=== PATIENT | female | born 1945 | race Caucasian/White ===

== ENCOUNTER 2018-06-04 03:29 | Inpatient (IN) ==
[2018-06-04] MEDS ORDERED: Ipratropium/Albuterol Neb 3 ML IH ONE ×2 (03:40→03:49)
[2018-06-04] MEDS ORDERED: methylPREDNISolone 125 MG/2 ML VIAL IVP ONE (03:40)
--- NOTE | 2018-06-04 03:52 | Emergency Department Note ---
Disposition Clinical Impression: Acute exacerbation of chronic obstructive airways disease, NSTEMI (non-ST elevated myocardial infarction) Community acquired pneumonia Qualifiers: Laterality: left Lung location: lower lobe of lung Qualified Code(s): J18.1 - Lobar pneumonia, unspecified organism Disposition: Admitted As Inpatient Condition: Fair Time of Disposition: 06:16 SOB HPI - General Chief Complaint: ED Shortness of Breath/Dyspnea Stated Complaint: SOB Time Seen by Provider: 06/04/18 03:40 Source: patient, EMS Mode of arrival: EMS Limitations: no limitations Nursing Notes Reviewed: Yes Vital Signs Reviewed: Yes - History of Present Illness Patient is a 72-year-old female presenting with difficulty breathing and wheezing. Past medical history significant for COPD, hypertension, hyperlipidemia. Patient states that since , 3 days ago, she is having increasing difficulty breathing with wheezing and slight cough, no sputum production. She states she has also had generalized upper respiratory congestion with rhinorrhea. She states that she has been using her inhalers as directed, without relief. She notes that this evening, when she was walking from her bedroom to her bathroom she became very short of breath with increased work of breathing and felt as though "she could not catch her breath ". She also states that she ran out of her inhalers this evening, which is why she then called EMS. She denies fever, chills. She denies chest pain or pressure. She denies associated nausea, vomiting, diaphoresis or abdominal pain. Patient denies any increased swelling in the lower extremities. Per EMS, on arrival patient's oxygen saturation was 94%, she did request an albuterol treatment and pulse ox was read at 98%. Upon arrival, patient states that she continues to have symptoms of difficulty breathing and wheezing although this feels slightly improved following the treatment in the squad. Patient states she has had COPD exacerbation in the past, this feels very similar. - Related Data Home Medications Medication Instructions Recorded Confirmed Albuterol Sulfate [Ventolin Hfa] 18 gm IH QID PRN 06/04/18 06/04/18 Aspirin [Lo-Dose Aspirin EC] 81 mg PO DAILY 06/04/18 06/04/18 Hydrochlorothiazide [Microzide] 12.5 mg PO DAILY PRN 06/04/18 06/04/18 Levothyroxine [Synthroid] 100 mcg PO 0630 06/04/18 06/04/18 Metoprolol [Lopressor] 100 mg PO DAILY 06/04/18 06/04/18 Montelukast [Singulair] 10 mg PO DAILY 06/04/18 06/04/18 Omeprazole [PriLOSEC] 40 mg PO DAILY 06/04/18 06/04/18 Allergies Allergy/AdvReac Type Severity Reaction Status Date / Time LC Allergy Hives Uncoded 04/11/16 10:18 All systems ED: reviewed and negative except as stated. Review of Systems: As Per HPI Constitutional: Denies: fever, chills, weakness Eyes: Denies: eye pain ENT ED: Reports: congestion Cardiovascular: Reports: dyspnea on exertion. Denies: chest pain, palpitations , syncope Respiratory: Reports: cough, dyspnea, wheezes. Denies: hemoptysis Gastrointestinal: Denies: abdominal pain, nausea, vomiting, diarrhea Genitourinary: Denies: urgency, dysuria Musculoskeletal: Denies: back pain Integumentary: Denies: rash Neurological: Denies: headache, weakness, numbness, paresthesias, confusion Endocrine: Denies: fatigue Past Medical History - Past Medical History Attestation: Yes The following information was validated with the patient. Source: patient Medical history: Reports: COPD, hypertension, thyroid disease - Social History Smoking Status: Never smoker Smokeless Tobacco Status: No Alcohol use: Reports: none Drug use: Reports: none Physical Exam - General Limitations: no limitations General appearance: alert, in no apparent distress - Head Head exam: atraumatic, normocephalic - Eye Eye exam: Present: normal appearance, EOMI - ENT ENT exam: normal exam, mucous membranes moist - Neck Neck exam: Present: normal inspection - Chest Chest inspection: Present: normal inspection, symmetric chest wall rise - Respiratory Respiratory exam: Present: wheezes (Scattered throughout). Absent: accessory muscle use - Cardiovascular Cardiovascular exam: Present: regular rate, normal rhythm - Abdominal Exam Abdominal exam: Present: soft, Non-Tender. Absent: tenderness, distention, guarding, rebound, rigidity - Extremities Exam Extremities exam: Present: normal inspection, normal capillary refill. Absent: tenderness, pedal edema, calf tenderness - Expanded Lower Extremity Exam Neurovascular/Tendon exam: Present: normal capillary refill. Absent: pulse deficit, motor deficit, sensory deficit - Back Exam Back exam: Present: normal inspection - Neurological Exam Neurological exam: Present: alert, oriented X3 - Psychiatric Psychiatric exam: Present: normal affect, normal mood - Skin Skin exam: Present: warm, dry, intact Course Course Narrative: Opiate CBC, BMP, BNP, troponin, chest x-ray and EKG peak. We will give patient DuoNeb and steroids. Vital Signs Temperature 97.9 F 06/04/18 03:32 Pulse Rate 96 06/04/18 03:32 Respiratory Rate 18 06/04/18 03:32 Blood Pressure 166/104 06/04/18 03:32 O2 Sat by Pulse Oximetry 98 06/04/18 03:32 Temperature 97.9 F 06/04/18 03:32 Pulse Rate 79 06/04/18 05:23 Respiratory Rate 16 06/04/18 05:41 Blood Pressure 141/80 06/04/18 05:23 O2 Sat by Pulse Oximetry 94 06/04/18 05:41 Oxygen Delivery Oxygen Delivery Nasal Cannula Shortness of Breath/Dyspnea - [facility] Narrative Medical decision making narrative: Patient is a 72-year-old female presenting with difficulty breathing which is recurrent and progressive over the past few days. In route patient was given Albuterol Neb 1, in the ER patient was given DuoNeb 2 as well as Solu-Medrol. Upon reevaluation, patient states that symptoms are slightly better, however continues to wheeze on exam, with slight overall improvement. CXR revealed left basilar infiltrate suggestive of pnuemonia, gave rocephin and azithromycin in the ER. Laboratory revealed elevated troponin at 0.47, potassium low at 3.3, will replace potassium 40 mEq as well as started low dose heparin per [facility] protocol. CBC is unremarkable. BNP slightly elevated at 153, no prior history. While in the ER, patient has remained afebrile with relatively normal vital signs, oxygen saturation has remained in the high 90s. Upon re-evaluation , patient continues to deny chest pain or discomfort. She is agreeable at this point in time to start heparin and is in understanding of laboratory findings. Have discussed recommendation for admission to patient and she agrees with disposition and agrees to admission for further evaluation. Spoke with hospitalist, at 615 and accepts patient at this time. - Differential Diagnosis Likely: acute exacerbation of chronic obstructive airways disease, congestive heart failure, pneumonia - Medical Records Medical records reviewed: Yes I reviewed the patient's medical records. - Lab Data Lab results reviewed: Yes I reviewed the patient's lab results. Result diagrams: 06/04/18 04:50 06/04/18 04:50 Lab Results 06/04/18 06/04/18 06/04/18 Range/Units 04:50 04:50 04:50 WBC 10.0 (4.3-11.1) K/mcL RBC 4.76 (3.82-4.97) M/mcL Hgb 14.5 (11.5-15.4) g/dL Hct 42.8 (35.3-44.9) % MCV 89.9 (83.0-100.0) fL MCH 30.5 (28.0-33.3) pg MCHC 33.9 (31.6-35.5) g/dL RDW 12.2 (11.5-14.5) % Plt Count 203 (140-400) K/mcL MPV 9.6 (9.4-12.4) fL Immature Gran % 0.5 (0-4) % Seg Neutrophils % 66.5 % Lymphocytes % 22.9 % Monocytes % 8.2 % Eosinophils % 1.2 % Basophils % 0.7 % Neutrophils # 6.7 (1.6-8.9) K/mcL Lymphocytes # 2.3 (0.6-4.6) K/mcL Monocytes # 0.8 (0.0-1.3) K/mcL Eosinophils # 0.1 (0.0-0.6) K/mcL Basophils # 0.1 (0.0-0.2) K/mcL PT (9.4-12.1) Seconds INR Heparin Anti-Xa, Unfract (0.30-0.70) IU/mL Sodium 138 (136-145) mEq/L Potassium 3.3 L (3.5-5.1) mEq/L Chloride 106 (98-107) mEq/L Carbon Dioxide 22 L (23-29) mEq/L BUN 13 (8-23) mg/dL Creatinine 0.69 (0.60-1.20) mg/dL Est GFR ( Amer) > 60 (> 60) Est GFR (Non-Af Amer) > 60 (> 60) BUN/Creatinine Ratio 19 (6-26) Glucose 137 H (70-105) mg/dL Calculated Osmolality 288 (280-300) Calcium 9.5 (8.6-10.3) mg/dL Magnesium 1.8 (1.6-2.6) mg/dL Troponin I 0.47 H* (< 0.04) ng/mL B-Natriuretic Peptide 168 H (Less than 100) pg/mL 06/04/18 Range/Units 04:50 WBC (4.3-11.1) K/mcL RBC (3.82-4.97) M/mcL Hgb (11.5-15.4) g/dL Hct (35.3-44.9) % MCV (83.0-100.0) fL MCH (28.0-33.3) pg MCHC (31.6-35.5) g/dL RDW (11.5-14.5) % Plt Count (140-400) K/mcL MPV (9.4-12.4) fL Immature Gran % (0-4) % Seg Neutrophils % % Lymphocytes % % Monocytes % % Eosinophils % % Basophils % % Neutrophils # (1.6-8.9) K/mcL Lymphocytes # (0.6-4.6) K/mcL Monocytes # (0.0-1.3) K/mcL Eosinophils # (0.0-0.6) K/mcL Basophils # (0.0-0.2) K/mcL PT 12.3 H (9.4-12.1) Seconds INR 1.1 Heparin Anti-Xa, Unfract 0.02 L (0.30-0.70) IU/mL Sodium (136-145) mEq/L Potassium (3.5-5.1) mEq/L Chloride (98-107) mEq/L Carbon Dioxide (23-29) mEq/L BUN (8-23) mg/dL Creatinine (0.60-1.20) mg/dL Est GFR ( Amer) (> 60) Est GFR (Non-Af Amer) (> 60) BUN/Creatinine Ratio (6-26) Glucose (70-105) mg/dL Calculated Osmolality (280-300) Calcium (8.6-10.3) mg/dL Magnesium (1.6-2.6) mg/dL Troponin I (< 0.04) ng/mL B-Natriuretic Peptide (Less than 100) pg/mL - Radiology Data Radiology results reviewed: Yes I reviewed the patient's radiology results. Chest X-Ray 06/04/18 03:40 IMPRESSION: Left basilar atelectasis versus pneumonia. D/ / Austin Macias MD / Austin Macias MD Interpreting Provider: Austin Macias MD - EKG Data EKG attestation: Yes I reviewed and interpreted this EKG. EKG results narrative: EKG performed at 341 with ventricular rate of 98 bpm, normal rhythm, normal axis , AL interval 176, QRS 89, QT interval 378, QTC of 483, no evidence of hypertrophy, borderline diffuse ST depression in leads 2, 3, aVF, V3, V4, V5, no ST segment elevation, T wave inversion at AVL. When compared to previous EKG there are: changes noted (diffuse ST depression new) S.B.Willie - Fabiano Situation: Demographics, MOA Background: Presenting Complaint, Relevant PMH, Meds, & Allergies Assessment: Vital Signs, Course and respsone to treatment, Exam Concerns, Pertinant Lab Results Recommendation: Recommendation based on pending studies, treatments, or consults S.B.Willie Report Given to: Dr. Anderson Mario Repor Time: 06:11 (accepted)
[2018-06-04] MEDS ORDERED: Albuterol 2.5 MG/3 ML NEBULIZER IH ONE (04:54)
[2018-06-04] MEDS ORDERED: cefTRIAXone 1,000 MG in Water for inj. (sterile) 20 ML 10 ML IVP ONE (04:59)
[2018-06-04] MEDS ORDERED: Azithromycin 500 MG in D5% in Water 250 ML IVPB ONE (05:00)
[2018-06-04 05:05] LABS: Basophils # 0.1 K/mcL (0.0-0.2); Basophils % 0.7 %; Eosinophils # 0.1 K/mcL (0.0-0.6); Eosinophils % 1.2 %; Hematocrit 42.8 % (35.3-44.9); Hemoglobin 14.5 g/dL (11.5-15.4); Immature Granulocytes % 0.5 % (0-4); Lymphocytes # 2.3 K/mcL (0.6-4.6); Lymphocytes % 22.9 %; Mean Corpuscular HGB Conc 33.9 g/dL (31.6-35.5); Mean Corpuscular Hemoglobin 30.5 pg (28.0-33.3); Mean Corpuscular Volume 89.9 fL (83.0-100.0); Mean Platelet Volume 9.6 fL (9.4-12.4); Monocytes # 0.8 K/mcL (0.0-1.3); Monocytes % 8.2 %; Neutrophils # 6.7 K/mcL (1.6-8.9); Platelet Count 203 K/mcL (140-400); Red Blood Count 4.76 M/mcL (3.82-4.97); Red Cell Distribution Width 12.2 % (11.5-14.5); Segmented Neutrophils % 66.5 %
[2018-06-04 05:20] LABS: BUN/Creatinine Ratio 19 (6-26); Blood Urea Nitrogen 13 mg/dL (8-23); Calcium 9.5 mg/dL (8.6-10.3); Carbon Dioxide 22 mEq/L (23-29); Chloride 106 mEq/L (98-107); Glucose 137 mg/dL (70-105); Osmolality,Calculated 288 (280-300); Potassium 3.3 mEq/L (3.5-5.1); Sodium 138 mEq/L (136-145); eGFR For Non-African Americans > 60 (> 60)
[2018-06-04 05:28] LABS: Troponin I 0.47 ng/mL (< 0.04)
[2018-06-04] MEDS ORDERED: Aspirin 325 MG TABLET PO ONE (05:32)
[2018-06-04] MEDS ORDERED: *HR* Heparin 5,000 UNIT/ML VIAL IVP ONE (05:39)
[2018-06-04] MEDS ORDERED: *HR* Heparin 5,000 UNIT/ML VIAL IVP PRN ×2 (05:39)
[2018-06-04 05:53] LABS: Magnesium 1.8 mg/dL (1.6-2.6)
[2018-06-04 06:05] LABS: Heparin anti-factor XA UFH 0.02 IU/mL (0.30-0.70)
[2018-06-04 06:06] LABS: INR 1.1; Prothrombin Time 12.3 Seconds (9.4-12.1)
--- NOTE | 2018-06-04 06:21 | Emergency Department Note ---
Disposition Clinical Impression: Acute exacerbation of chronic obstructive airways disease, NSTEMI (non-ST elevated myocardial infarction) Community acquired pneumonia Qualifiers: Laterality: left Lung location: lower lobe of lung Qualified Code(s): J18.1 - Lobar pneumonia, unspecified organism Disposition: Admitted As Inpatient Condition: Fair Referrals: Noy Oconnell MD [Primary Care Provider] - General Adult HPI - General Chief complaint: ED Shortness of Breath/Dyspnea Stated complaint: SOB Time Seen by Provider: 06/04/18 03:40 Source: patient, EMS Mode of arrival: EMS Limitations: no limitations Nursing Notes Reviewed: Yes Vital Signs Reviewed: Yes - History of Present Illness Pain Scale: 0 - Related Data Home Medications Medication Instructions Recorded Confirmed Albuterol Sulfate [Ventolin Hfa] 18 gm IH QID PRN 06/04/18 06/04/18 Aspirin [Lo-Dose Aspirin EC] 81 mg PO DAILY 06/04/18 06/04/18 Hydrochlorothiazide [Microzide] 12.5 mg PO DAILY PRN 06/04/18 06/04/18 Levothyroxine [Synthroid] 100 mcg PO 0630 06/04/18 06/04/18 Metoprolol [Lopressor] 100 mg PO DAILY 06/04/18 06/04/18 Montelukast [Singulair] 10 mg PO DAILY 06/04/18 06/04/18 Omeprazole [PriLOSEC] 40 mg PO DAILY 06/04/18 06/04/18 Allergies Allergy/AdvReac Type Severity Reaction Status Date / Time TUSSINS Allergy Hives Uncoded 04/11/16 10:18 Constitutional: Denies: fever, chills, weakness Eyes: Denies: eye pain ENT ED: Reports: congestion Cardiovascular: Reports: dyspnea on exertion. Denies: chest pain, palpitations , syncope Respiratory: Reports: cough, dyspnea, wheezes. Denies: hemoptysis Gastrointestinal: Denies: abdominal pain, nausea, vomiting, diarrhea Genitourinary: Denies: urgency, dysuria Musculoskeletal: Denies: back pain Integumentary: Denies: rash Neurological: Denies: headache, weakness, numbness, paresthesias, confusion Endocrine: Denies: fatigue Past Medical History - Past Medical History Medical history: Reports: COPD, hypertension, thyroid disease - Social History Smoking Status: Never smoker Smokeless Tobacco Status: No Alcohol use: Reports: none Drug use: Reports: none Physical Exam - General Limitations: no limitations General appearance: alert, in no apparent distress Course Vital Signs Temperature 97.9 F 06/04/18 03:32 Pulse Rate 96 06/04/18 03:32 Respiratory Rate 18 06/04/18 03:32 Blood Pressure 166/104 06/04/18 03:32 O2 Sat by Pulse Oximetry 98 06/04/18 03:32 Temperature 97.9 F 06/04/18 03:32 Pulse Rate 79 06/04/18 05:23 Respiratory Rate 16 06/04/18 05:41 Blood Pressure 141/80 06/04/18 05:23 O2 Sat by Pulse Oximetry 94 06/04/18 05:41 Oxygen Delivery Oxygen Delivery Nasal Cannula Medical Decision Making - Medical Records Medical records reviewed: Yes I reviewed the patient's medical records. - Lab Data Lab results reviewed: Yes I reviewed the patient's lab results. Result diagrams: 06/04/18 04:50 06/04/18 04:50 Lab Results 06/04/18 06/04/18 06/04/18 Range/Units 04:50 04:50 04:50 WBC 10.0 (4.3-11.1) K/mcL RBC 4.76 (3.82-4.97) M/mcL Hgb 14.5 (11.5-15.4) g/dL Hct 42.8 (35.3-44.9) % MCV 89.9 (83.0-100.0) fL MCH 30.5 (28.0-33.3) pg MCHC 33.9 (31.6-35.5) g/dL RDW 12.2 (11.5-14.5) % Plt Count 203 (140-400) K/mcL MPV 9.6 (9.4-12.4) fL Immature Gran % 0.5 (0-4) % Seg Neutrophils % 66.5 % Lymphocytes % 22.9 % Monocytes % 8.2 % Eosinophils % 1.2 % Basophils % 0.7 % Neutrophils # 6.7 (1.6-8.9) K/mcL Lymphocytes # 2.3 (0.6-4.6) K/mcL Monocytes # 0.8 (0.0-1.3) K/mcL Eosinophils # 0.1 (0.0-0.6) K/mcL Basophils # 0.1 (0.0-0.2) K/mcL PT (9.4-12.1) Seconds INR Heparin Anti-Xa, Unfract (0.30-0.70) IU/mL Sodium 138 (136-145) mEq/L Potassium 3.3 L (3.5-5.1) mEq/L Chloride 106 (98-107) mEq/L Carbon Dioxide 22 L (23-29) mEq/L BUN 13 (8-23) mg/dL Creatinine 0.69 (0.60-1.20) mg/dL Est GFR ( Amer) > 60 (> 60) Est GFR (Non-Af Amer) > 60 (> 60) BUN/Creatinine Ratio 19 (6-26) Glucose 137 H (70-105) mg/dL Calculated Osmolality 288 (280-300) Calcium 9.5 (8.6-10.3) mg/dL Magnesium 1.8 (1.6-2.6) mg/dL Troponin I 0.47 H* (< 0.04) ng/mL B-Natriuretic Peptide 168 H (Less than 100) pg/mL 06/04/18 Range/Units 04:50 WBC (4.3-11.1) K/mcL RBC (3.82-4.97) M/mcL Hgb (11.5-15.4) g/dL Hct (35.3-44.9) % MCV (83.0-100.0) fL MCH (28.0-33.3) pg MCHC (31.6-35.5) g/dL RDW (11.5-14.5) % Plt Count (140-400) K/mcL MPV (9.4-12.4) fL Immature Gran % (0-4) % Seg Neutrophils % % Lymphocytes % % Monocytes % % Eosinophils % % Basophils % % Neutrophils # (1.6-8.9) K/mcL Lymphocytes # (0.6-4.6) K/mcL Monocytes # (0.0-1.3) K/mcL Eosinophils # (0.0-0.6) K/mcL Basophils # (0.0-0.2) K/mcL PT 12.3 H (9.4-12.1) Seconds INR 1.1 Heparin Anti-Xa, Unfract 0.02 L (0.30-0.70) IU/mL Sodium (136-145) mEq/L Potassium (3.5-5.1) mEq/L Chloride (98-107) mEq/L Carbon Dioxide (23-29) mEq/L BUN (8-23) mg/dL Creatinine (0.60-1.20) mg/dL Est GFR ( Amer) (> 60) Est GFR (Non-Af Amer) (> 60) BUN/Creatinine Ratio (6-26) Glucose (70-105) mg/dL Calculated Osmolality (280-300) Calcium (8.6-10.3) mg/dL Magnesium (1.6-2.6) mg/dL Troponin I (< 0.04) ng/mL B-Natriuretic Peptide (Less than 100) pg/mL - Radiology Data Radiology results reviewed: Yes I reviewed the patient's radiology results. Chest X-Ray 06/04/18 03:40 IMPRESSION: Left basilar atelectasis versus pneumonia. D/ / Austin Macias MD / Austin Macias MD Interpreting Provider: Austin Macias MD - EKG Data EKG #2 EKG attestation: Yes I reviewed and interpreted this EKG. EKG results narrative: EKG shows a normal sinus rhythm with ventricular rate of 98. No acute ST segment elevation or depression. No arrhythmia or ectopy. Critical Care Time Critical Care Time: Yes Total Critical Care Time: 45 Attestation: Critical care performed: Time is exclusive of separately billable procedures. Time includes: direct patient care, patient reassessment, coordination of patient care, interpretation of data (laboratory data, radiology data, and respiratory data), review of patient's medical records, medical consultation and documentation of patient care. Procedures included in critical care time: Procedures excluded from critical care time: Attestation Statement - Attestation Attestation: Ozzy Fowler MD, personally evaluated this patient and discussed their management with the resident physician. I reviewed the resident's note and agree with the documented findings, medical decision making, and plan of care. 72-year-old female presents to the emergency department with a complaint of some increasing shortness of breath over the past 2 or 3 days. She states that symptoms were worse last evening and she ran out of her inhaler. Some cough. No fever. She denies any chest pain. On examination patient is a well-developed well-nourished well-appearing elderly female in no acute distress. She is alert and oriented 3. There is no cyanosis or diaphoresis. Chest is nontender to palpation. Breath sounds are equal bilaterally with scattered bilateral expiratory wheezes. Heart regular rate and rhythm. Abdomen soft and nontender with normal bowel sounds. EKG shows no acute changes. Chest x-ray shows questionable pneumonia. Labs reviewed. Troponin 0.47. Patient started on heparin infusion. The hospitalist, Dr. Barron, was consulted and accepted admission of the patient.
[2018-06-04] MEDS: Heparin 25,000 UNIT/500 ML D5W 25,000 UNIT/500 ML BAG IVC SCH (06:40)
[2018-06-04] MEDS ORDERED: hydroCHLOROthiazide 25 MG TABLET PO PRN (07:22)
[2018-06-04] MEDS ORDERED: Naloxone 0.4 MG/ML INJ IVP PRN (07:32)
--- NOTE | 2018-06-04 08:04 | Internal Med History&Physical ---
Date of Encounter: 06/04/18 Time of Encounter: 07:59 Internal Medicine - H&P: HPI History of present illness: Ms. Patricio is a 72 year old female with history of asthma, on Singulair presented for shortness of breath. This has been progressing for past 3 days. She forgot to take her Singulair when she had dyspnea. She denies chest pain, N /V, palpitations, numbness/tingling. She does complain of diaphoresis and fever at home with a cough with frothy white sputum. In the ED she was found to have excessive work of breathing with wheezing. She was given Solu Medrol, antibiotics, and Duo Nebs, she has notable relief. A chest x-ray showed left lobe atelectais vs pneumonia. An EKG was unremarkable. Troponin was elevated at 0.47. She was subsequently started on a heparin drip. She is currently in no acute distress and denies chest pain at bedside. Past Med Surg Social Fam HX - Past Medical History Medical history: COPD, hypertension, thyroid disease - Social History Smoking Status: Never smoker Smokeless Tobacco Status: No Alcohol use: none Drug use: none Internal Medicine - H&P: Meds Albuterol Sulfate [Ventolin Hfa] 18 gm IH QID PRN 06/04/18 [History] Aspirin [Lo-Dose Aspirin EC] 81 mg PO DAILY 06/04/18 [History] Hydrochlorothiazide [Microzide] 12.5 mg PO DAILY PRN 06/04/18 [History] Levothyroxine [Synthroid] 100 mcg PO 0630 06/04/18 [History] Metoprolol Succinate [Toprol Xl] 100 mg PO QDPC 06/04/18 [History] Montelukast [Singulair] 10 mg PO DAILY 06/04/18 [History] Omeprazole [PriLOSEC] 40 mg PO DAILY 06/04/18 [History] 3 Allergy/AdvReac Type Severity Reaction Status Date / Time JULIANNINS Allergy Hives Uncoded 04/11/16 10:18 All Systems PM: A 10-system review of systems was performed and is negative for pertinent findings except as documented above in the HPI. - Constitutional Constitutional: no chills, no fever(s), no night sweats - EENT Eyes: no change in vision, no discharge, no pain, no photophobia Ears: no ear discharge, no ear pain, no tinnitus Nose, mouth and throat: no dysphagia, no nasal discharge, no neck pain, no sore throat - Cardiovascular Cardiovascular ROS IM: dyspnea, no chest pain, no diaphoresis, no lightheadedness, no palpitations, no syncope - Respiratory Respiratory: cough (white frothy sputum), dyspnea, wheezing, no excessive phlegm production - Gastrointestinal Gastrointestinal: no abdominal pain, no diarrhea, no hematemesis, no hematochezia, no melena, no nausea, no vomiting - Genitourinary Genitourinary: no change in urinary stream, no dysuria, no flank pain, no hematuria - Musculoskeletal Musculoskeletal ROS IM: no numbness, no tingling - Integumentary Integumentary IM: no rash, no unusual bruising - Neurological Neurological ROS: no confusion, no convulsions, no focal weakness, no numbness, no tingling, no tremor(s) - Hematologic/Lymphatic Hematologic/Lymphatic: no easy bruising - Constitutional Vitals: Temp Pulse Resp BP Pulse Ox 97.9 F 79 18 141/75 94 06/04/18 03:32 06/04/18 05:23 06/04/18 06:49 06/04/18 06:49 06/04/18 05:41 Exam: NAD - Head Head exam: Present: atraumatic, normocephalic - Eye Eye exam: Present: PERRL, conjuntiva pink, sclera anicteric Pupils: Present: PERRL - Neck Neck exam general surgery: Present: supple, trachea midline. Absent: lymphadenopathy - Respiratory Respiratory exam: Present: prolonged expiratory phase, wheezes. Absent: accessory muscle use, rales, rhonchi - Cardiovascular Cardiovascular exam: Present: RRR, +S1, +S2. Absent: diastolic murmur, gallop, rubs, systolic murmur - GI/Abdominal GI/Abdominal exam: Present: normal bowel sounds, soft, no peritoneal signs. Absent: distended, tenderness - Extremities Exam Extremities exam: Present: warm, radial pulses palpable and symmetrical. Absent : calf tenderness, cyanotic, pedal edema - Neurological Exam Neurological exam: Present: CN II-XII intact, oriented X3, no focal deficits. Absent: pronater drift, facial droop, speech deficit - Skin Skin exam: Present: dry, intact Internal Med - H&P Results - Labs CBC & Chem 7: 06/04/18 04:50 06/04/18 04:50 - Assessment and plan (1) Acute asthma exacerbation Current Visit: Yes Status: Acute Assessment and plan: Likely the trigger is pneumonia based on history and/or other trigger such as humid weather. Continue Solu Medrol, Duo neb therapy, and Rocephin/Azithro. Await sputum cultures, procalcitonin, mycoplasma, legionella, strep pneumo workup. Qualifiers: Asthma severity: unspecified severity Asthma persistence: intermittent Qualified Code(s): J45.21 - Mild intermittent asthma with (acute) exacerbation (2) Elevated troponin Current Visit: Yes Status: Acute Assessment and plan: Likely demand ischemia from asthma exacerbation and pneumonia. Will trend troponin and continue heparin until evaluation is completed. Will also obtain echocardiogram. (3) Hypertension Current Visit: Yes Status: Acute Assessment and plan: Resume home medications. Qualifiers: Hypertension type: essential hypertension Qualified Code(s): I10 - Essential (primary) hypertension (4) Community acquired pneumonia Current Visit: Yes Status: Acute Assessment and plan: Plan as above. Qualifiers: Laterality: left Lung location: lower lobe of lung Qualified Code(s): J18.1 - Lobar pneumonia, unspecified organism (5) DVT prophylaxis Current Visit: Yes Status: Acute Assessment and plan: Currently on heparin drip. - Time Spent With Patient Total time spent is greater than 50% in coordination of care (as documented) at patient's floor/unit and/or counseling patient:
[2018-06-04] MEDS: Aspirin Enteric Coated 81 MG Tablet PO SCH (09:23)
[2018-06-04] MEDS: Metoprolol XL (24 HR) Succ 50 MG TAB.ER.24H PO SCH (09:23)
--- NOTE | 2018-06-04 12:01 | Cardiology Consult Note ---
Date of Encounter: 06/04/18 Time of Encounter: 11:30 Assessment and Plan (1) Elevated troponin Current Visit: Yes Status: Acute Troponin 0.47, 0.91 in the setting of CAP. NSTEMI type I vs. type II. Patient denies chest pain/discomfort prior to admission or during exam. ECG not available for review, will order one now. CXR suggestive of PNA. Risk factors for CAD: positive family hx (brothers with CABG, HTN) Agree with IV heparin gtt, asa, and BB. Will start statin. Check TTE. Recommend treatment of PNA and optimizing respiratory status. LHC to be considered prior to discharge, patient is agreeable. Will continue to follow. (2) Community acquired pneumonia Current Visit: Yes Status: Acute Mgmt per primary service. On IV atb Qualifiers: Laterality: left Lung location: lower lobe of lung Qualified Code(s): J18.1 - Lobar pneumonia, unspecified organism Discussion w patient/family: The assessment and plan as outlined above was discussed with the patient and/or family members who expressed understanding and agreement. All questions were answered. Thank you for involving us in the care of your patient. Please call with any questions. The patient will be discussed and reviewed with Dr. Cox; changes to be made accordingly. History of Present Illness Consult date: 06/04/18 Requesting physician: Anton Broderick Consult reason: Elevated troponin Chief complaint: Shortness of breath History of present illness: Ms. Patricio is a 72 year old female with PMHx significant of asthma, HTN, thyroid disease who presented to the ED with with worsening shortness of breath and difficulty breathing since ; patient reports she forgot to take her allergy pill which she blames on symptoms. Associated symptoms included subjective fevers and chills, and productive cough with clear-white sputum. Symptoms continued to worsen this morning which prompted ED evaluation. She denies chest pain/discomfort, orthopnea, or any other CV symptoms. No prior CV testing reported. Past Med Surg Social Fam HX - Past Medical History Attestation: Yes The following information was validated with the patient. Source: patient Medical history: COPD, hypertension, thyroid disease - Social History Smoking Status: Former smoker Smokeless Tobacco Status: No Alcohol use: none Drug use: none Medications and Allergies Albuterol Sulfate [Ventolin Hfa] 18 gm IH QID PRN 06/04/18 [History] Aspirin [Lo-Dose Aspirin EC] 81 mg PO DAILY 06/04/18 [History] Hydrochlorothiazide [Microzide] 12.5 mg PO DAILY PRN 06/04/18 [History] Levothyroxine [Synthroid] 100 mcg PO 0630 06/04/18 [History] Metoprolol Succinate [Toprol Xl] 100 mg PO QDPC 06/04/18 [History] Montelukast [Singulair] 10 mg PO DAILY 06/04/18 [History] Omeprazole [PriLOSEC] 40 mg PO DAILY 06/04/18 [History] 3 Allergy/AdvReac Type Severity Reaction Status Date / Time TUSSINS Allergy Hives Uncoded 04/11/16 10:18 All Systems Review: The remainder of the systems were reviewed and are negative - Cardiovascular Cardiovascular: as per HPI Physical Examination Vital Signs, Last 4 Hours Temp Pulse Resp BP Pulse Ox 06/04/18 08:08 97.8 F 79 16 155/77 93 General: Conversant, No Apparent Distress HEENT: Atraumatic, Normocephaly, Mucus Membranes Moist Cardiac: Reg Rate and Rhythm, Normal S1 and S2 Lungs: Other (few expiratory wheezes; diminished bilateral bases) Neuro: Alert and responsive Abdomen: Soft Skin: No rashes noted on visualized skin Musculoskeletal: No Chest Wall Tenderness Extremities: No Edema, Normal Pulses Results 06/04/18 04:50 06/04/18 04:50 Lab Results 06/04/18 10:17 Troponin I 0.94 H* Active Medications Albuterol/Ipratropium (Duoneb) 3 ml IH [id number] [facility] Stop: 12/05/18 12:01 Aspirin (Aspirin Ec) 81 mg PO DAILY [facility] Stop: 12/04/18 09:01 Last Admin: 06/04/18 09:23 Dose: 81 mg Atorvastatin Calcium (Lipitor) 40 mg PO HS [facility] Stop: 12/04/18 21:01 Heparin Sodium (Porcine) (Heparin) 4,000 unit IVP Q6HR PRN PRN Reason: SEE COMMENTS Stop: 12/04/18 05:40 Heparin Sodium (Porcine) (Heparin) 2,000 unit IVP Q6H PRN PRN Reason: SEE COMMENTS Stop: 12/04/18 05:40 Hydrochlorothiazide (Hydrochlorothiazide) 12.5 mg PO DAILY PRN PRN Reason: Hypertension Heparin Sodium/Dextrose (Heparin 25,000 Unit/500 Ml D5w) 25,000 unit in 500 mls @ 19.942 mls/hr IVC .Q24H [facility]; 11.6 UNIT/KG/HR PRN Reason: Protocol Stop: 12/04/18 05:46 Last Admin: 06/04/18 06:40 Dose: 11.6 unit/kg/hr, 19.942 mls/hr Ceftriaxone Sodium 1,000 mg/ (Sterile Water) 10 mls @ 600 mls/hr IVP DAILY [facility] Stop: 12/05/18 09:01 Azithromycin 500 mg/ Dextrose 250 mls @ 252 mls/hr IVPB Q24H [facility] Stop: 12/05/18 06:01 Levothyroxine Sodium (Synthroid) 100 mcg PO 0630 [facility] Stop: 12/05/18 06:31 Methylprednisolone (Solu-Medrol) 40 mg IVP Q6HR [facility] Stop: 12/04/18 12:01 Metoprolol Succinate (Toprol Xl) 100 mg PO DAILY [facility] Stop: 12/04/18 09:01 Last Admin: 06/04/18 09:23 Dose: 100 mg Montelukast Sodium (Singulair) 10 mg PO DAILY [facility] Stop: 12/04/18 09:01 Last Admin: 06/04/18 09:25 Dose: Not Given Naloxone HCl (Narcan) 0.4 mg IVP Q2MIN PRN PRN Reason: SEE COMMENTS Stop: 12/04/18 07:33 Omeprazole (Prilosec) 40 mg PO DAILY [facility] Stop: 12/04/18 09:01 Last Admin: 06/04/18 09:24 Dose: 40 mg - Imaging and Cardiology Echo: pending Consult Discharge Plan - Plan Referrals: Noy Oconnell MD [Primary Care Provider] -
[2018-06-04] MEDS ORDERED: NON-FORMULARY MEDICATION 1 EACH EACH (Metoprolol Succinate [Toprol Xl] 100 MG) PO SCH (12:15)
[2018-06-04] MEDS: MethylPREDNISolone 40 MG/ML VIAL IVP SCH ×2 (12:43→18:39)
[2018-06-04] MEDS ORDERED: Ipratropium/Albuterol Neb 3 ML IH PRN (16:26)
[2018-06-04] MEDS ORDERED: Beclomethasone 80mcg MDI IH PRN (16:27)
[2018-06-04] MEDS ORDERED: Melatonin 3 MG TABLET PO PRN (20:15)
[2018-06-05] MEDS: MethylPREDNISolone 40 MG/ML VIAL IVP SCH ×4 (00:46→17:05)
[2018-06-05 02:42] LABS: BUN/Creatinine Ratio 23 (6-26); Blood Urea Nitrogen 18 mg/dL (8-23); Calcium 9.9 mg/dL (8.6-10.3); Carbon Dioxide 20 mEq/L (23-29); Chloride 107 mEq/L (98-107); Glucose 173 mg/dL (70-105); Osmolality,Calculated 288 (280-300); Potassium 4.1 mEq/L (3.5-5.1); Sodium 136 mEq/L (136-145); eGFR For Non-African Americans > 60 (> 60)
[2018-06-05] MEDS: Heparin 25,000 UNIT/500 ML D5W 25,000 UNIT/500 ML BAG IVC SCH (05:35)
[2018-06-05] MEDS: Azithromycin 500 MG in D5% in Water 250 ML IVPB SCH (05:35)
--- NOTE | 2018-06-05 08:56 | Cardiology Progress Note ---
Date of Encounter: 06/05/18 Time of Encounter: 07:00 Assessment and Plan (1) Elevated troponin Current Visit: Yes Status: Acute Troponin 0.47, 0.94 in the setting of CAP. NSTEMI type I vs. type II. Patient denies chest pain/discomfort prior to admission or during exam. No acute ischemic ECG changes present. CXR suggestive of PNA. Presented with significant dyspnea/difficulty breathing. Recommend CTA to further evaluate PNA and r/o PE--discussed with primary service who will order/follow. Risk factors for CAD: positive family hx (brothers with CABG, HTN) Agree with IV heparin gtt, asa, and BB. Will start statin. Prelim TTE: EF normal, normal wall motion, mild PH, normal RV structure and function. Recommend treatment of PNA and optimizing respiratory status. LHC to be considered prior to discharge, patient is agreeable. Will continue to follow. (2) Community acquired pneumonia Current Visit: Yes Status: Acute Mgmt per primary service. On IV atb Qualifiers: Laterality: left Lung location: lower lobe of lung Qualified Code(s): J18.1 - Lobar pneumonia, unspecified organism Discussion w patient/family: The assessment and plan as outlined above was discussed with the patient and/or family members who expressed understanding and agreement. All questions were answered. Thank you for involving us in the care of your patient. Please call with any questions. The patient will be discussed and reviewed with Dr. Cox; changes to be made accordingly. Subjective Principal diagnosis: Elevated troponin Interval history: Seen and examined. No complaints overnight. Reports dyspnea has improved, still with wheezing this morning. No chest pain. Objective Vital Signs, Last 4 Hours Temp Pulse Resp BP Pulse Ox 06/05/18 07:36 98.1 F 58 17 121/79 93 Results 06/04/18 04:50 06/05/18 02:12 Lab Results 06/04/18 06/05/18 10:17 02:12 Sodium 136 Potassium 4.1 Chloride 107 Carbon Dioxide 20 L BUN 18 Creatinine 0.77 Glucose 173 H Calcium 9.9 Troponin I 0.94 H* Active Medications Albuterol/Ipratropium (Duoneb) 3 ml IH [id number] [facility] Stop: 12/05/18 12:01 Albuterol/Ipratropium (Duoneb) 3 ml IH [id number] PRN PRN Reason: Shortness Of Breath/Wheezing Stop: 12/04/18 16:31 Last Admin: 06/04/18 21:55 Dose: 3 ml Aspirin (Aspirin Ec) 81 mg PO DAILY [facility] Stop: 12/04/18 09:01 Last Admin: 06/04/18 09:23 Dose: 81 mg Atorvastatin Calcium (Lipitor) 40 mg PO HS [facility] Stop: 12/04/18 21:01 Last Admin: 06/04/18 20:14 Dose: Not Given Beclomethasone Dipropionate (Qvar 80 Mcg) 2 puff IH BID PRN PRN Reason: Wheezing Escitalopram Oxalate (Lexapro) 10 mg PO DAILY PRN PRN Reason: Anxiety Stop: 12/04/18 16:28 Heparin Sodium (Porcine) (Heparin) 4,000 unit IVP Q6HR PRN PRN Reason: SEE COMMENTS Stop: 12/04/18 05:40 Heparin Sodium (Porcine) (Heparin) 2,000 unit IVP Q6H PRN PRN Reason: SEE COMMENTS Stop: 12/04/18 05:40 Last Admin: 06/04/18 20:14 Dose: 2,000 unit Hydrochlorothiazide (Hydrochlorothiazide) 12.5 mg PO DAILY PRN PRN Reason: Hypertension Heparin Sodium/Dextrose (Heparin 25,000 Unit/500 Ml D5w) 25,000 unit in 500 mls @ 19.942 mls/hr IVC .Q24H [facility]; 11.6 UNIT/KG/HR PRN Reason: Protocol Stop: 12/04/18 05:46 Last Admin: 06/05/18 05:35 Dose: 13.61 unit/kg/hr, 23.4 mls/hr Ceftriaxone Sodium 1,000 mg/ (Sterile Water) 10 mls @ 600 mls/hr IVP DAILY [facility] Stop: 12/05/18 09:01 Azithromycin 500 mg/ Dextrose 250 mls @ 252 mls/hr IVPB Q24H [facility] Stop: 12/05/18 06:01 Last Admin: 06/05/18 05:35 Dose: 252 mls/hr Levothyroxine Sodium (Synthroid) 100 mcg PO DAILY@0630 [facility] Stop: 12/04/18 12:11 Last Admin: 06/05/18 05:35 Dose: 100 mcg Melatonin (Melatonin) 3 mg PO HS PRN PRN Reason: Insomnia Stop: 12/04/18 20:16 Last Admin: 06/04/18 21:41 Dose: 3 mg Methylprednisolone (Solu-Medrol) 40 mg IVP Q6HR [facility] Stop: 12/04/18 12:01 Last Admin: 06/05/18 05:35 Dose: 40 mg Metoprolol Succinate (Toprol Xl) 100 mg PO DAILY [facility] Stop: 12/04/18 09:01 Last Admin: 06/04/18 09:23 Dose: 100 mg Montelukast Sodium (Singulair) 10 mg PO DAILY [facility] Stop: 12/04/18 09:01 Last Admin: 06/04/18 09:25 Dose: Not Given Naloxone HCl (Narcan) 0.4 mg IVP Q2MIN PRN PRN Reason: SEE COMMENTS Stop: 12/04/18 07:33 Omeprazole (Prilosec) 40 mg PO DAILY [facility] Stop: 12/04/18 09:01 Last Admin: 06/04/18 09:24 Dose: 40 mg - Imaging and Cardiology Echo: pending Other Results: 12 hour tele: avg HR=56 SB. - EKG Interpretation EKG results cardiology: personally reviewed Consult Discharge Plan - Plan Referrals: Noy Oconnell MD [Primary Care Provider] -
[2018-06-05] MEDS: cefTRIAXone 1,000 MG in Water for inj. (sterile) 20 ML 10 ML IVP SCH (09:14)
[2018-06-05] MEDS: Aspirin Enteric Coated 81 MG Tablet PO SCH (09:14)
[2018-06-05] MEDS: Metoprolol XL (24 HR) Succ 50 MG TAB.ER.24H PO SCH (09:14)
[2018-06-05] MEDS ORDERED: Isovue-370 500 ML INFUS..BTL IV ONE (09:21)
--- NOTE | 2018-06-05 09:23 | Internal Med Progress Note ---
Hospitalist Progress Note - Encounter Date of Encounter: 06/05/18 Time of Encounter: 11:00 - Subjective Interval History: Patient presented with shortness of breath found to have asthma exacerbation secondary to pneumonia in addition to elevated troponins Cardiology following with consideration for left heart catheterization - Exam Vitals: Temp Pulse Resp BP Pulse Ox 98.1 F 58 17 121/79 93 06/05/18 07:36 06/05/18 07:36 06/05/18 07:36 06/05/18 07:36 06/05/18 07:36 Exam: Gen.: Nonacute distress, alert and oriented 3 ENT: Mucosal membranes moist Respiratory: Lungs are clear to auscultation bilaterally without any wheezing rhonchi or rales Cardiovascular: Normal S1 and S2 regular rate rhythm no murmurs rubs or gallops Abdomen: Soft, nontender and nondistended with positive bowel sounds Extremities: No lower extremity edema Skin: Normal color - Assessment and Plan (1) Community acquired pneumonia Current Visit: Yes Status: Acute Assessment and Plan: Chest x-ray with findings concerning for left basilar pneumonia Continue management with IV azithromycin and IV ceftriaxone. (2) Acute asthma exacerbation Current Visit: Yes Status: Acute Assessment and Plan: Patient with reported expiratory wheezing and shortness of breath. Suspected to be triggered by suspected pneumonia above Continue Solu Medrol, Duo neb therapy (3) Elevated troponin Current Visit: Yes Status: Acute Assessment and Plan: Elevated troponins at 0.29->0.94->0.47 Continue heparin drip Cardiology consulted with recommendations for consideration of left heart catheterization (4) Hypertension Current Visit: Yes Status: Acute Assessment and Plan: Controlled; continue beta luis fernando. (5) Hypothyroid Current Visit: Yes Status: Acute Assessment and Plan: Continue home dose of levothyroxine (6) Mood disorder Current Visit: Yes Status: Acute Assessment and Plan: Continue home medications (7) DVT prophylaxis Current Visit: Yes Status: Acute Assessment and Plan: Currently on heparin drip. DVT Prophylaxis: Patient on heparin drip - Time Spent with Patient Total time spent is greater than 50% in coordination of care (as documented) at patient's floor/unit and/or counseling patient: Internal Medicine: Result - Labs CBC & Chem 7: 06/04/18 04:50 06/05/18 02:12 Labs: BMP 06/05/18 02:12 Sodium 136 Potassium 4.1 Chloride 107 Carbon Dioxide 20 L BUN 18 Creatinine 0.77 Glucose 173 H Calcium 9.9 Cardiac Enzymes 06/04/18 Range/Units 10:17 Troponin I 0.94 H* (< 0.04) ng/mL - ABG Interpretation ABG results: PT/INR, D-dimer PT 12.3 Seconds (9.4-12.1) H 06/04/18 04:50 - Impressions Impressions Echocardiogram 06/04/18 07:34 Impressions: LVEF 60-65%. Normal LV chamber size, wall thickness and function. Mild left ventricular diastolic dysfunction. Normal right ventricular structure and function. No significant valvular dysfunction. Mild pulmonary hypertension. Estimated RVSP = 38 mmHg. Left Ventricular Wall Motion: Rest Echo Findings All wall segments showed normal motion. Findings: Study Quality * Technically adequate exam. ECG Findings * Normal sinus rhythm. Left Ventricle * LVEF 60-65%. * Normal LV chamber size, wall thickness and function. * Mild left ventricular diastolic dysfunction. Right Ventricle * Normal right ventricular structure and function. Left Atrium * Mildly dilated left atrium. Right Atrium * Normal right atrial size. Aortic Valve * Trileaflet aortic valve. * No aortic regurgitation. * No aortic stenosis. Mitral Valve * Mild mitral annular calcification * Mildly thickened mitral valve leaflets. * Trace mitral regurgitation. * No mitral stenosis. Tricuspid Valve * Normal tricuspid valve structure and function. * Trace tricuspid regurgitation. * Trace tricuspid regurgitation. * Mild pulmonary hypertension. Pulmonic Valve * Normal pulmonic valve structure and function. * No pulmonic regurgitation. Aorta * Normally sized aortic root. Pericardium * The pericardium appears normal. IVC * Normal IVC dimensions and inspiratory collapse. Pulmonary Artery * Normal visualized portions of the main pulmonary artery. Consult Discharge Plan - Plan Referrals: Noy Oconnell MD [Primary Care Provider] - (1) Community acquired pneumonia Qualifiers: Laterality: left Lung location: lower lobe of lung Qualified Code(s): J18.1 - Lobar pneumonia, unspecified organism (2) Acute asthma exacerbation Qualifiers: Asthma severity: unspecified severity Asthma persistence: intermittent Qualified Code(s): J45.21 - Mild intermittent asthma with (acute) exacerbation (4) Hypertension Qualifiers: Hypertension type: essential hypertension Qualified Code(s): I10 - Essential (primary) hypertension
[2018-06-05] MEDS: Ipratropium/Albuterol Neb 3 ML IH SCH ×4 (11:20→23:56)
[2018-06-05 13:04] LABS: Phosphorous 2.7 mg/dL (2.7-4.5)
[2018-06-05 13:48] LABS: Adenovirus Not Detected (Not Detect); Bordetella Pertussis Not Detected (Not Detect); Chlamydophila pneumoniae Not Detected (Not Detect); Coronavirus 229E Not Detected (Not Detect); Coronavirus HKU1 Not Detected (Not Detect); Coronavirus NL63 Not Detected (Not Detect); Coronavirus OC43 Not Detected (Not Detect); Human Metapneumovirus Not Detected (Not Detect); Human Rhinovirus/Enterovirus DETECTED (Not Detect); Influenza A Subtype 2009 H1 Not Detected (Not Detect); Influenza A Untypeable Not Detected (Not Detect); Influenza B Not Detected (Not Detect); Mycoplasma pneumoniae Not Detected (Not Detect); Parainfluenza Virus 1 Not Detected (Not Detect); Parainfluenza Virus 2 Not Detected (Not Detect); Parainfluenza Virus 3 Not Detected (Not Detect); Parainfluenza Virus 4 Not Detected (Not Detect); Respiratory Syncytial Virus Not Detected (Not Detect)
[2018-06-06] MEDS: MethylPREDNISolone 40 MG/ML VIAL IVP SCH ×2 (00:27→05:17)
[2018-06-06] MEDS: Heparin 25,000 UNIT/500 ML D5W 25,000 UNIT/500 ML BAG IVC SCH (04:09)
[2018-06-06] MEDS: Ipratropium/Albuterol Neb 3 ML IH SCH ×4 (04:45→16:00)
[2018-06-06] MEDS: Azithromycin 500 MG in D5% in Water 250 ML IVPB SCH (05:17)
[2018-06-06] MEDS: Metoprolol XL (24 HR) Succ 50 MG TAB.ER.24H PO SCH (09:16)
[2018-06-06] MEDS: Aspirin Enteric Coated 81 MG Tablet PO SCH (09:16)
[2018-06-06] MEDS: cefTRIAXone 1,000 MG in Water for inj. (sterile) 20 ML 10 ML IVP SCH (09:17)
--- NOTE | 2018-06-06 09:40 | Cardiology Progress Note ---
Date of Encounter: 06/06/18 Time of Encounter: 08:30 Assessment and Plan (1) Elevated troponin Current Visit: Yes Status: Acute Troponin 0.47, 0.94, 0.29 in the setting of CAP. NSTEMI type I vs. type II. Patient denies chest pain/discomfort prior to admission or during exam. No acute ischemic ECG changes present. CXR suggestive of PNA. Presented with significant dyspnea/difficulty breathing. Recommend CTA to further evaluate PNA and r/o PE--discussed with primary service who will order/follow. Risk factors for CAD: positive family hx (brothers with CABG, HTN) Has been on heparin gtt for >48 hours, will discontinue. Continue asa, statin, BB. Cardiac rehab consult not warranted at this time, will re-evaluate after future ischemic evaluation. TTE: EF normal, normal wall motion, mild PH, normal RV structure and function. Discussed possible ischemic evaluation with patient prior to discharge, however she declines. Will consider in the outpatient setting. (2) Community acquired pneumonia Current Visit: Yes Status: Acute Mgmt per primary service. On IV atb Qualifiers: Laterality: left Lung location: lower lobe of lung Qualified Code(s): J18.1 - Lobar pneumonia, unspecified organism Discussion w patient/family: The assessment and plan as outlined above was discussed with the patient and/or family members who expressed understanding and agreement. All questions were answered. Thank you for involving us in the care of your patient. Please call with any questions. The patient will be discussed and reviewed with ; changes to be made accordingly. Subjective Principal diagnosis: Elevated troponin Interval history: Seen and examined. No complaints overnight. Reports dyspnea has improved, still with wheezing this morning. + sputum cultures for rhinovirus No chest pain. Objective Vital Signs, Last 4 Hours Temp Pulse Resp BP Pulse Ox 06/06/18 07:32 16 92 06/06/18 06:54 97.6 F 69 16 172/90 97 General: Conversant, No Apparent Distress HEENT: Atraumatic, Normocephaly, Mucus Membranes Moist Cardiac: Reg Rate and Rhythm, Normal S1 and S2 Lungs: Other (Wheezing throughout) Neuro: Alert and responsive Abdomen: Soft Skin: No rashes noted on visualized skin Musculoskeletal: No Chest Wall Tenderness Extremities: No Edema, Normal Pulses Results 06/04/18 04:50 06/05/18 02:12 Active Medications Albuterol/Ipratropium (Duoneb) 3 ml IH [id number] [facility] Stop: 12/05/18 12:01 Last Admin: 06/06/18 07:32 Dose: 3 ml Albuterol/Ipratropium (Duoneb) 3 ml IH [id number] PRN PRN Reason: Shortness Of Breath/Wheezing Stop: 12/04/18 16:31 Last Admin: 06/04/18 21:55 Dose: 3 ml Aspirin (Aspirin Ec) 81 mg PO DAILY [facility] Stop: 12/04/18 09:01 Last Admin: 06/06/18 09:16 Dose: 81 mg Atorvastatin Calcium (Lipitor) 40 mg PO HS [facility] Stop: 12/04/18 21:01 Last Admin: 06/05/18 21:48 Dose: 40 mg Beclomethasone Dipropionate (Qvar 80 Mcg) 2 puff IH BID PRN PRN Reason: Wheezing Escitalopram Oxalate (Lexapro) 10 mg PO DAILY PRN PRN Reason: Anxiety Stop: 12/04/18 16:28 Last Admin: 06/06/18 05:17 Dose: 10 mg Hydrochlorothiazide (Hydrochlorothiazide) 12.5 mg PO DAILY PRN PRN Reason: Hypertension Ceftriaxone Sodium 1,000 mg/ (Sterile Water) 10 mls @ 600 mls/hr IVP DAILY [facility] Stop: 12/05/18 09:01 Last Admin: 06/06/18 09:17 Dose: 600 mls/hr Azithromycin 500 mg/ Dextrose 250 mls @ 252 mls/hr IVPB Q24H [facility] Stop: 12/05/18 06:01 Last Admin: 06/06/18 05:17 Dose: 252 mls/hr Levothyroxine Sodium (Synthroid) 100 mcg PO DAILY@0630 [facility] Stop: 12/04/18 12:11 Last Admin: 06/06/18 05:16 Dose: 100 mcg Melatonin (Melatonin) 3 mg PO HS PRN PRN Reason: Insomnia Stop: 12/04/18 20:16 Last Admin: 06/04/18 21:41 Dose: 3 mg Methylprednisolone (Solu-Medrol) 40 mg IVP Q6HR [facility] Stop: 12/04/18 12:01 Last Admin: 06/06/18 05:17 Dose: 40 mg Metoprolol Succinate (Toprol Xl) 100 mg PO DAILY [facility] Stop: 12/04/18 09:01 Last Admin: 06/06/18 09:16 Dose: 100 mg Montelukast Sodium (Singulair) 10 mg PO DAILY [facility] Stop: 12/04/18 09:01 Last Admin: 06/06/18 09:16 Dose: 10 mg Naloxone HCl (Narcan) 0.4 mg IVP Q2MIN PRN PRN Reason: SEE COMMENTS Stop: 12/04/18 07:33 Omeprazole (Prilosec) 40 mg PO DAILY [facility] Stop: 12/04/18 09:01 Last Admin: 06/06/18 09:16 Dose: 40 mg - Imaging and Cardiology Echo: report reviewed Other Results: 12 hour tele: avg HR=68 SR. No events noted. - EKG Interpretation EKG results cardiology: personally reviewed Consult Discharge Plan - Plan Referrals: Noy Oconnell MD [Primary Care Provider] -
[2018-06-06] MEDS ORDERED: predniSONE 20 MG TABLET PO ONE (12:20)
--- NOTE | 2018-06-06 12:37 | Discharge Summary ---
- NOTES TO OUTPATIENT PROVIDER Notes to Outpatient Provider: ACUTE Asthma, Pneumonia, improving; also had elevated Troponin, declined ischemic evaluation while inpatient; f/up with Cardiology;. Prednisone allergy was listed with vomiting, diarrhea; monitor closely; Flovent changed to scheduled BID; Date of Encounter: 06/06/18 Time of Encounter: 12:35 - Discharge Diagnosis (1) Community acquired pneumonia Priority: Primary Status: Acute Qualifiers: Laterality: unspecified laterality Qualified Code(s): J18.9 - Pneumonia, unspecified organism (2) Elevated troponin Priority: Primary Status: Acute (3) Acute asthma exacerbation Priority: Primary Status: Acute Qualifiers: Asthma severity: moderate Asthma persistence: persistent Qualified Code(s ): J45.41 - Moderate persistent asthma with (acute) exacerbation (4) Hypertension Priority: Secondary Status: Chronic Qualifiers: Hypertension type: essential hypertension Qualified Code(s): I10 - Essential (primary) hypertension (5) Hypothyroid Priority: Secondary Status: Chronic Qualifiers: Hypothyroidism type: unspecified Qualified Code(s): E03.9 - Hypothyroidism , unspecified (6) Mood disorder Priority: Secondary Status: Chronic Hospital course: Ms. Patricio is a 72 year old female with the above medical problems who was admitted with worsening shortness of breath and cough. Imaging studies showed bilateral pneumonia and she was started on IV antibiotics and supplemental oxygen. She was also treated for mild asthma exacerbation. Respiratory infection panel was positive for enteral/rhinovirus. Patient was also noted to have mild troponin leak, which could be demand ischemia versus non-STEMI. She was started on ACS protocol with IV heparin drip , aspirin, statin and continued on beta luis fernando. Cardiology was consulted, recommended transthoracic echocardiogram, which showed preserved EF, mild diastolic dysfunction. Cardiology recommendations ischemic evaluation with left heart catheterization when patient is stable, however she declines it during this visit, prefers to do it as an outpatient. Patient is otherwise medically stable for discharge today on oral steroids and antibiotics. She was also noted to have uncontrolled blood pressure, she takes hydrochlorothiazide as needed at home, reinforced that she should be taking it daily. Discharge discussed with: patient, nurse - Time Spent with Patient Total time spent providing and/or coordinating discharge services: Greater than 30 minutes (45 min) - Discharge Medications Prescriptions: Atorvastatin [Lipitor] 40 mg PO HS #30 tablet Levofloxacin [Levaquin] 750 mg PO Q48H #3 tablet predniSONE [PredniSONE] 40 mg PO DAILY #24 tablet Home Medications: Albuterol Sulfate [Ventolin Hfa] 2 puff IH QID PRN 06/04/18 [History] Aspirin [Lo-Dose Aspirin EC] 81 mg PO DAILY 06/04/18 [History] Escitalopram [Lexapro] 10 mg PO DAILY PRN 06/04/18 [History] Levothyroxine [Synthroid] 100 mcg PO 0630 06/04/18 [History] Metoprolol Succinate [Toprol Xl] 100 mg PO DAILY 06/04/18 [History] Montelukast [Singulair] 10 mg PO HS 06/04/18 [History] Omeprazole [PriLOSEC] 40 mg PO DAILY 06/04/18 [History] Atorvastatin [Lipitor] 40 mg PO HS #30 tablet 06/06/18 [Rx] Fluticasone Propionate [Flovent Hfa] 2 puff IH BID #0 06/06/18 [Rx] Hydrochlorothiazide [Microzide] 12.5 mg PO DAILY #0 06/06/18 [Rx] Levofloxacin [Levaquin] 750 mg PO Q48H #3 tablet 06/06/18 [Rx] predniSONE [PredniSONE] 40 mg PO DAILY #24 tablet 06/06/18 [Rx] Allergies/Adverse Reactions: 3 Allergy/AdvReac Type Severity Reaction Status Date / Time guaifenesin [From Robitussin] Allergy Hives Verified 06/04/18 16:04 lisinopril AdvReac Cough Verified 06/04/18 16:04 prednisone AdvReac See Verified 06/04/18 16:04 Comments Date of admission: 06/05/18 18:39 Primary care physician: Noy Oconnell MD Discharging clinician: Harini Damon Anticipated date of discharge: 06/06/18 - Constitutional Vitals: Temp Pulse Resp BP Pulse Ox 97.8 F 69 16 178/89 95 06/06/18 11:47 06/06/18 11:47 06/06/18 11:47 06/06/18 11:47 06/06/18 11:47 General appearance: Present: A&O X 3, answers questions appropriately Exam: . - Respiratory Respiratory exam: Present: CTAB (coarse breath sounds B/L). Absent: accessory muscle use, rales, rhonchi, wheezes - Cardiovascular Cardiovascular exam: Present: RRR, +S1, +S2. Absent: diastolic murmur, gallop, rubs, systolic murmur - Patient Status Disposition: Home, Self-Care Condition: Fair Functional capacity at discharge: independent ambulation Overall status at discharge: patient is progressing back to baseline - Discharge Instructions Instructions: Prednisone (By mouth), Atorvastatin (By mouth), Levofloxacin (By mouth), Myocardial Infarction (DC), Asthma (DC), Hypothyroidism (DC), Chronic Hypertension (DC), Pneumonia (DC) Follow Up With: Noy Oconnell MD [Primary Care Provider] - 06/13/18 10:00 am Chago Cox DO [Partnered Physician] - (office will call patient at home with appointment date and time) Additional Instructions: F/up with [facility] as scheduled, in 3-4 weeks - Diet and Activity Activity: increase activity as tolerated Diet: low fat, low cholesterol, low salt diet
[2018-06-06 15:29] VITALS: BP 155/81
--- NOTE | 2018-06-07 22:18 | Electrocardiograph Report ---
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
--- NOTE | 2018-06-07 22:19 | Electrocardiograph Report ---
[place] [address] Test Date: 2018-06-04 Pat Name: Nallely Patricio Department: 111 Room: [facility] Gender: F [employer] Agent: : 1945 Requested By: Janet Oswald Order Number: [id number] Reading MD: Antony Perez Measurements Intervals [place] Rate: 63 P: 61 MS: 171 QRS: 58 QRSD: 78 T: 81 QT: 486 QTc: 494 Interpretive Statements SINUS RHYTHM PROLONGED QT INTERVAL Electronically Signed On 06-07-2018 22:17:54 EDT by Antony Perez
[2018-06-08 11:17] LABS: Mycoplasma pneumoniae IgG 0.26 U/L (<=0.09)
== END 2018-06-06 16:39 | disposition home or self-care (01) | DRG 193 ==
LOC: 2NENU 03:29 → EMEROOARM 03:29 → SUATTDRO 06:24 → 2NENU 07:30 → SUATTDRO 06-05 18:39
PROVIDERS: ADMIT Internal Medicine; ATTEND Internal Medicine